=== PATIENT | male | born 1985 | race African-American/Black ===

== ENCOUNTER 2021-08-06 00:17 | Emergency (ER) | payer OTHER ==
[~2021-08-06] VITALS: Ht 175.3 cm; Wt 90.0 kg
[~2021-08-06 00:17] MED LIST: MVI
[2021-08-06] MEDS ORDERED: ACETAMINOPHEN 500MG TABLET PO ONE (01:00)
[2021-08-06] MEDS ORDERED: IBUPROFEN 800MG TABLET PO ONE (01:00)
[2021-08-06] MEDS ORDERED: NAPR-681 MT (02:50)
[2021-08-06] MEDS ORDERED: HYDR-4001 MT (02:50)
[2021-08-06 02:55] VITALS: BP 134/93
== END 2021-08-06 03:00 | disposition home or self-care (01) ==
LOC: ER 00:17
DX: S93.402A Sprain of unspecified ligament of left ankle, initial encounter (principal); W18.30XA Fall on same level, unspecified, initial encounter; Y93.89 Activity, other specified; Y92.89 Other specified places as the place of occurrence of the external cause; Y99.8 Other external cause status
CPT/HCPCS: 73610; 73630; 99284